=== PATIENT | male | born 1960 | race Hispanic/Latino ===

== ENCOUNTER 2020-09-02 12:51 | Day surgery (SDC) | payer OTHER ==
[~2020-09-02 12:51] MED LIST: DEXTROSE 5% IVPB SCH; Dexamethasone 10 MG in Sodium Chloride 0.9% 50 ML IVPB SCH; FLUOROURACIL IVPB SCH; Ferumoxytol (NON ERSD) 510 MG in Sodium Chloride 0.9% 250 ML 150 ML IVPB SCH; LEUCOVORIN CALCIUM IVPB SCH; OXALIPLATIN IVPB SCH; PALONOSETRON HCL 0.05 MG/ML 5 ML VIAL IVP SCH; Palonosetron HCl 0.25 MG in Sodium Chloride 0.9% 50 ML IVPB SCH; SODIUM CHLORIDE 0.9% IVPB SCH; WATER IVPB SCH
[2020-09-02] MEDS ORDERED: Sodium Chloride 0.9% 20 ML ONE (13:00)
== END 2020-09-02 16:52 | disposition home or self-care (01) ==
LOC: ONC/OP 12:51
PROVIDERS: ATTEND Internal Medicine Hematology & Oncology
DX: Z51.11 Encounter for antineoplastic chemotherapy (principal); C18.7 Malignant neoplasm of sigmoid colon; D50.0 Iron deficiency anemia secondary to blood loss (chronic)
CPT/HCPCS: 96367; 96375; 96413; 96415; 96416; 96417; J0640; J1100; J2469; J7050; J7070; J9190; J9263; Q0138

== ENCOUNTER 2020-09-09 10:03 | Day surgery (SDC) | payer OTHER ==
[~2020-09-09 10:03] MED LIST changes: -DEXTROSE 5% IVPB SCH; -Dexamethasone 10 MG in Sodium Chloride 0.9% 50 ML IVPB SCH; -FLUOROURACIL IVPB SCH; -LEUCOVORIN CALCIUM IVPB SCH; -OXALIPLATIN IVPB SCH; -PALONOSETRON HCL 0.05 MG/ML 5 ML VIAL IVP SCH; -Palonosetron HCl 0.25 MG in Sodium Chloride 0.9% 50 ML IVPB SCH; -SODIUM CHLORIDE 0.9% IVPB SCH; -WATER IVPB SCH
[2020-09-09] MEDS ORDERED: Sodium Chloride 0.9% 20 ML ONE (10:05)
[2020-09-09 10:43] VITALS: BP 143/87
== END 2020-09-09 11:18 | disposition home or self-care (01) ==
LOC: ONC/OP 10:03
PROVIDERS: ATTEND Internal Medicine Hematology & Oncology
DX: D50.0 Iron deficiency anemia secondary to blood loss (chronic) (principal); C18.7 Malignant neoplasm of sigmoid colon
CPT/HCPCS: 96365; J1642; J7050; Q0138

== ENCOUNTER 2020-09-16 10:46 | Day surgery (SDC) | payer OTHER ==
[2020-09-16 10:58] VITALS: BP 129/78; TEMP 98.4
== END 2020-09-16 15:10 | disposition home or self-care (01) ==
LOC: ONC/OP 10:46
PROVIDERS: ATTEND Internal Medicine Hematology & Oncology
DX: Z51.11 Encounter for antineoplastic chemotherapy (principal); C18.7 Malignant neoplasm of sigmoid colon; D50.0 Iron deficiency anemia secondary to blood loss (chronic)
CPT/HCPCS: 96367; 96375; 96413; 96415; 96416; 96417; J0640; J1100; J2469; J3490; J7070; J9190; J9263; Q0138

== ENCOUNTER 2020-09-30 10:00 | Day surgery (SDC) | payer OTHER ==
[~2020-09-30 10:00] MED LIST changes: +DEXTROSE 5% IVPB SCH; +FLUOROURACIL IVPB SCH; -Ferumoxytol (NON ERSD) 510 MG in Sodium Chloride 0.9% 250 ML 150 ML IVPB SCH; +LEUCOVORIN CALCIUM IVPB SCH; +OXALIPLATIN IVPB SCH; +PALONOSETRON HCL 0.05 MG/ML 5 ML VIAL IVP SCH; +SODIUM CHLORIDE 0.9% IVPB SCH; +WATER IVPB SCH
[2020-09-30] MEDS ORDERED: Sodium Chloride 0.9% 20 ML ONE (10:06)
[2020-09-30 10:16] VITALS: BP 136/76; TEMP 98.1
== END 2020-09-30 13:57 | disposition home or self-care (01) ==
LOC: ONC/OP 10:00
PROVIDERS: ATTEND Internal Medicine Hematology & Oncology
DX: Z51.11 Encounter for antineoplastic chemotherapy (principal); C18.7 Malignant neoplasm of sigmoid colon; D50.0 Iron deficiency anemia secondary to blood loss (chronic)
CPT/HCPCS: 96367; 96375; 96413; 96415; 96416; 96417; J0640; J1100; J2469; J7070; J9190; J9263

== ENCOUNTER 2020-10-14 11:33 | Day surgery (SDC) | payer OTHER ==
[2020-10-14] MEDS ORDERED: Sodium Chloride 0.9% 20 ML ONE (11:37)
[2020-10-14 11:58] VITALS: BP 130/85; TEMP 98.5
[2020-10-14] MEDS ORDERED: OXALIPLATIN IVPB SCH (12:00)
[2020-10-14] MEDS ORDERED: LEUCOVORIN CALCIUM IVPB SCH (12:00)
[2020-10-14] MEDS ORDERED: PALONOSETRON HCL 0.05 MG/ML 5 ML VIAL IVP SCH (12:00)
[2020-10-14] MEDS ORDERED: WATER IVPB SCH ×2 (12:00→12:15)
[2020-10-14] MEDS ORDERED: DEXTROSE 5% IVPB SCH ×2 (12:00→12:15)
[2020-10-14] MEDS ORDERED: SODIUM CHLORIDE 0.9% IVPB SCH (12:00)
[2020-10-14] MEDS ORDERED: FLUOROURACIL IVPB SCH (12:15)
== END 2020-10-14 15:20 | disposition home or self-care (01) ==
LOC: ONC/OP 11:33
PROVIDERS: ATTEND Internal Medicine Hematology & Oncology
DX: Z51.11 Encounter for antineoplastic chemotherapy (principal); C18.7 Malignant neoplasm of sigmoid colon; D50.0 Iron deficiency anemia secondary to blood loss (chronic)
CPT/HCPCS: 96367; 96375; 96413; 96415; 96416; 96417; J0640; J1100; J2469; J7070; J9190; J9263

== ENCOUNTER 2020-11-11 10:00 | Day surgery (SDC) | payer OTHER ==
[~2020-11-11 10:00] MED LIST changes: +Palonosetron HCl 0.25 MG in Sodium Chloride 0.9% 50 ML IVPB SCH
[2020-11-11] MEDS ORDERED: Sodium Chloride 0.9% 20 ML ONE (10:22)
[2020-11-11 13:16] VITALS: BP 134/85; TEMP 98.3
== END 2020-11-11 13:35 | disposition home or self-care (01) ==
LOC: ONC/OP 10:00
PROVIDERS: ATTEND Internal Medicine Hematology & Oncology
DX: Z51.11 Encounter for antineoplastic chemotherapy (principal); C18.7 Malignant neoplasm of sigmoid colon; D50.0 Iron deficiency anemia secondary to blood loss (chronic)
CPT/HCPCS: 96367; 96375; 96413; 96415; 96416; 96417; J0640; J1100; J2469; J7070; J9190; J9263

== ENCOUNTER 2020-11-25 11:46 | Day surgery (SDC) | payer OTHER ==
[2020-11-25] MEDS ORDERED: Sodium Chloride 0.9% 20 ML ONE (12:43)
[2020-11-25 12:57] VITALS: BP 135/87
== END 2020-11-25 15:46 | disposition home or self-care (01) ==
LOC: ONC/OP 11:46
PROVIDERS: ATTEND Internal Medicine Hematology & Oncology
DX: Z51.11 Encounter for antineoplastic chemotherapy (principal); C18.7 Malignant neoplasm of sigmoid colon; D50.0 Iron deficiency anemia secondary to blood loss (chronic)
CPT/HCPCS: 96367; 96375; 96413; 96415; 96416; 96417; J0640; J1100; J2469; J7070; J9190; J9263

== ENCOUNTER 2020-12-09 11:25 | Day surgery (SDC) | payer OTHER ==
[~2020-12-09 11:25] MED LIST changes: -Palonosetron HCl 0.25 MG in Sodium Chloride 0.9% 50 ML IVPB SCH; +Sodium Chloride 0.9% 20 ML ONE
[2020-12-09 12:07] VITALS: BP 145/73; TEMP 98.1
== END 2020-12-09 14:44 | disposition home or self-care (01) ==
LOC: ONC/OP 11:25
PROVIDERS: ATTEND Internal Medicine Hematology & Oncology
DX: Z51.11 Encounter for antineoplastic chemotherapy (principal); C18.7 Malignant neoplasm of sigmoid colon; D50.0 Iron deficiency anemia secondary to blood loss (chronic)
CPT/HCPCS: 96367; 96375; 96413; 96415; 96416; 96417; J0640; J1100; J2469; J7070; J9190; J9263

== ENCOUNTER → 2020-12-23 | Day surgery (SDC) | payer OTHER ==
[2020-12-23 13:18] VITALS: BP 133/81; TEMP 97.5
== END ==
LOC: ONC/OP 10:44
PROVIDERS: ATTEND Internal Medicine Hematology & Oncology
DX: Z51.11 Encounter for antineoplastic chemotherapy (principal); C18.7 Malignant neoplasm of sigmoid colon; D50.0 Iron deficiency anemia secondary to blood loss (chronic)
CPT/HCPCS: 96367; 96375; 96413; 96415; 96416; 96417; J0640; J1100; J2469; J7070; J9190; J9263

== ENCOUNTER 2021-01-06 10:26 | Day surgery (SDC) | payer OTHER ==
[~2021-01-06 10:26] MED LIST changes: -Sodium Chloride 0.9% 20 ML ONE
[2021-01-06] MEDS ORDERED: Sodium Chloride 0.9% 20 ML ONE (11:24)
[2021-01-06 11:46] VITALS: BP 135/80; TEMP 98
== END 2021-01-06 14:55 | disposition home or self-care (01) ==
LOC: ONC/OP 10:26
PROVIDERS: ATTEND Internal Medicine Hematology & Oncology
DX: Z51.11 Encounter for antineoplastic chemotherapy (principal); C18.7 Malignant neoplasm of sigmoid colon; D50.0 Iron deficiency anemia secondary to blood loss (chronic)
CPT/HCPCS: 96367; 96375; 96413; 96415; 96416; 96417; J0640; J1100; J2469; J7070; J9190; J9263

== ENCOUNTER 2021-01-25 09:13 | Day surgery (SDC) | payer OTHER ==
[~2021-01-25 09:13] MED LIST changes: +Dexamethasone 10 MG in Sodium Chloride 0.9% 50 ML IVPB SCH; +Palonosetron HCl 0.25 MG in Sodium Chloride 0.9% 50 ML IVPB SCH
[2021-01-25] MEDS ORDERED: Sodium Chloride 0.9% 20 ML ONE (09:16)
[2021-01-25 09:56] VITALS: BP 122/80; TEMP 98.9
[2021-01-25] MEDS ORDERED: WATER IVPB SCH (10:15)
[2021-01-25] MEDS ORDERED: OXALIPLATIN IVPB SCH (10:15)
[2021-01-25] MEDS ORDERED: DEXTROSE 5% IVPB SCH (10:15)
== END 2021-01-25 14:25 | disposition home or self-care (01) ==
LOC: ONC/OP 09:13
PROVIDERS: ATTEND Internal Medicine Hematology & Oncology
DX: Z51.11 Encounter for antineoplastic chemotherapy (principal); C18.7 Malignant neoplasm of sigmoid colon; D50.0 Iron deficiency anemia secondary to blood loss (chronic)
CPT/HCPCS: 96367; 96375; 96413; 96415; 96416; 96417; J0640; J1100; J2469; J7070; J9190; J9263

== ENCOUNTER 2021-02-08 09:56 | Day surgery (SDC) | payer OTHER ==
[~2021-02-08 09:56] MED LIST changes: -Dexamethasone 10 MG in Sodium Chloride 0.9% 50 ML IVPB SCH; -LEUCOVORIN CALCIUM IVPB SCH; -PALONOSETRON HCL 0.05 MG/ML 5 ML VIAL IVP SCH; -SODIUM CHLORIDE 0.9% IVPB SCH
[2021-02-08] MEDS: SODIUM CHLORIDE 0.9% IVPB SCH ×2 (10:22→10:46)
[2021-02-08] MEDS: LEUCOVORIN CALCIUM IVPB SCH ×2 (10:22→10:46)
[2021-02-08 10:28] VITALS: BP 120/75; TEMP 98.5
== END 2021-02-08 12:09 | disposition home or self-care (01) ==
LOC: ONC/OP 09:56
PROVIDERS: ATTEND Internal Medicine Hematology & Oncology
DX: Z51.11 Encounter for antineoplastic chemotherapy (principal); C18.7 Malignant neoplasm of sigmoid colon; D50.0 Iron deficiency anemia secondary to blood loss (chronic)
CPT/HCPCS: 96366; 96375; 96413; J0640; J1100; J2469; J7070; J9190; J9263